=== PATIENT | female | born 1945 ===

== ENCOUNTER 2017-11-20 07:51 | Day surgery (SDC) | payer MEDICARE, BC ==
[~2017-11-20 07:51] MED LIST: Acetaminophen TAB* 325 MG PO PRN; Buffered Lidocaine 0.9% SYRIN* 5 ML/SYR SYRINGE INTRADERM ONE
[2017-11-20] MEDS ORDERED: Tropicamide 1% OPTH.SOL* BTL ONE (08:35)
[2017-11-20] MEDS ORDERED: Cyclopentolate 1% OPTH.SOL* 2 ML BTL ONE (08:35)
[2017-11-20] MEDS ORDERED: Phenylephrine 2.5% OPTH.SOL* 2 ML BTL ONE (08:35)
[2017-11-20] MEDS ORDERED: Tetracaine 0.5% OPTH.SOL 4 ML* 1 DROP BTL ONE (08:35)
[2017-11-20] MEDS ORDERED: Neomycin/Polymy/Dex OPHTH.OIN* 3.5 GM ONE (08:35)
[2017-11-20] MEDS ORDERED: Ketorolac 0.5% OPHTH (NF) 0.5 % 5 ML BTL ONE (08:35)
[2017-11-20] MEDS ORDERED: acetaZOLAMIDE TAB* 250 MG ONE (08:35)
[2017-11-20] MEDS ORDERED: Povidone Iodine 5% OPTH* 30 ML BTL ONE (08:35)
[2017-11-20] MEDS ORDERED: Lidocaine 1% MPF* 2 ML VIAL ONE (08:35)
[2017-11-20] MEDS ORDERED: Midazolam* 1 MG/ML 2 ML VIAL (2 MG) ONE (09:08)
[2017-11-20] MEDS ORDERED: Propofol* 10 MG/ML 20 ML BTL IV PUSH ONE (09:19)
[2017-11-20 09:51] VITALS: BP 130/65
--- NOTE | 2017-11-21 01:37 | OP ---
DATE OF OPERATION: 11/20/17 - [facility] DATE OF : 45 SURGEON: Bautista Valle MD ANESTHESIOLOGIST: Balaji Hall DO ANESTHESIA: Monitored anesthesia care. PRE-OP DIAGNOSIS: Cataract, right eye. POST-OP DIAGNOSIS: Cataract, right eye. OPERATIVE PROCEDURE: Extracapsular cataract extraction of the right eye with intraocular lens implant. IMPLANTS: SN60WF 17.0 diopter lens to the right eye. COMPLICATIONS: None. DESCRIPTION OF PROCEDURE: The patient was given phenylephrine 2.5% and cyclopentolate 1% eye drops to the operative eye in the preoperative area. The patient was brought to the operating room where a time-out was taken to identify the correct patient, site, and side of surgery. The patient's right eye was prepped and draped in the usual sterile fashion with 5% Betadine. A second time- out was taken to verify the correct patient, site and side of surgery and correct lens selection. A lid speculum was placed to the right eye. A 1-mm paracentesis blade was used to make a clear corneal incision in the superotemporal position. Preservative-free 1% lidocaine was injected into the anterior chamber. DisCoVisc was then injected into the anterior chamber. A 2.75 mm keratome blade was used to make a triplanar incision at the inferotemporal position. A cystotome initiated a capsulorrhexis which was completed with Utrata forceps in a continuous and curvilinear manner. Hydrodissection of the lens was performed with BSS on a cannula. The lens could be spun in the capsular bag. The phacoemulsification handpiece was used with a [id number] technique to remove the nucleus in its entirety with 13.24 CDE. The I/A handpiece then removed the residual cortical lens material. DisCoVisc was injected to inflate the capsular bag. The planned SN60WF 17.0 diopter lens was injected in the capsular bag. The residual DisCoVisc was removed from the eye with the I/A handpiece. The corneal incisions were hydrated and no leaks occurred at physiologic pressure around 20 mmHg per palpation. The lid speculum was removed and drapes removed. Maxitrol ointment was placed on the surface of the operative eye. An adhesive patch and shield was then placed on the operative eye. The patient was taken to the postoperative area in stable condition. [id number]/[facility] #: [id number] MTDD
== END 2017-11-20 09:59 | disposition home or self-care (01) ==
LOC: OREAST 07:51
PROVIDERS: ATTEND Student in an Organized Health Care Education/Training Program
DX: H25.11 Age-related nuclear cataract, right eye (principal); H43.813 Vitreous degeneration, bilateral; E78.2 Mixed hyperlipidemia; E53.8 Deficiency of other specified B group vitamins; Z87.891 Personal history of nicotine dependence; I69.320 Aphasia following cerebral infarction; G25.81 Restless legs syndrome; M85.879 Other specified disorders of bone density and structure, unspecified ankle and foot; G62.9 Polyneuropathy, unspecified
CPT/HCPCS: A9270-GY; J2250; J2704; V2632

== ENCOUNTER 2017-11-27 06:27 | Day surgery (SDC) | payer MEDICARE, BC ==
[2017-11-27] MEDS ORDERED: Midazolam* 1 MG/ML 2 ML VIAL (2 MG) ONE ×2 (07:44→07:49)
[2017-11-27] MEDS ORDERED: fentaNYL* 50 MCG/ML 2 ML VIAL (100 MCG VIAL) ONE (07:48)
[2017-11-27] MEDS ORDERED: Propofol* 10 MG/ML 20 ML BTL IV PUSH ONE (08:04)
[2017-11-27 08:19] VITALS: BP 108/80
[2017-11-27] MEDS ORDERED: Povidone Iodine 5% OPTH* 30 ML BTL ONE (11:40)
[2017-11-27] MEDS ORDERED: Neomycin/Polymy/Dex OPHTH.OIN* 3.5 GM ONE (11:40)
[2017-11-27] MEDS ORDERED: Lidocaine 1% MPF* 2 ML VIAL ONE (11:40)
[2017-11-27] MEDS ORDERED: Phenylephrine 2.5% OPTH.SOL* 2 ML BTL ONE (11:40)
[2017-11-27] MEDS ORDERED: Cyclopentolate 1% OPTH.SOL* 2 ML BTL ONE (11:40)
[2017-11-27] MEDS ORDERED: acetaZOLAMIDE TAB* 250 MG ONE (11:40)
[2017-11-27] MEDS ORDERED: Tetracaine 0.5% OPTH.SOL 4 ML* 1 DROP BTL ONE (11:41)
[2017-11-27] MEDS ORDERED: Ketorolac 0.5% OPHTH (NF) 0.5 % 5 ML BTL ONE (11:41)
[2017-11-27] MEDS ORDERED: Tropicamide 1% OPTH.SOL* BTL ONE (11:41)
--- NOTE | 2017-11-27 22:45 | OP ---
DATE OF OPERATION: 11/27/17 - [facility] DATE OF : 45 SURGEON: Bautista Valle MD ANESTHESIOLOGIST: Emilia Mercado MD ANESTHESIA: Monitored anesthesia care. PRE-OP DIAGNOSIS: Cataract, left eye. POST-OP DIAGNOSIS: Cataract, left eye. OPERATIVE PROCEDURE: Extracapsular cataract extraction of the left eye with intraocular lens implant. IMPLANTS: SN60WF 17.5 diopter lens, left eye. COMPLICATIONS: None. DESCRIPTION OF PROCEDURE: The patient was given phenylephrine 2.5% and cyclopentolate 1% eye drops to the operative eye in the preoperative area. The patient was brought to the operating room where a time-out was taken to identify the correct patient, site, and side of surgery. The patient's left eye was prepped and draped in the usual sterile fashion with 5% Betadine. A second time-out was taken to verify the correct patient, site, and side of surgery, and correct lens selection. A lid speculum was placed to left eye. A 1-mm paracentesis blade was used to make a clear corneal incision in the inferotemporal position. Preservative- free 1% lidocaine was injected into the anterior chamber. DisCoVisc was then injected into the anterior chamber. A 2.75-mm keratome blade was used to make a triplanar incision at the superotemporal position. A cystotome initiated a capsulorrhexis, which was completed with Utrata forceps in a continuous and curvilinear manner. Hydrodissection of the lens was performed with BSS on a cannula. The lens could be spun in the capsular bag. The phacoemulsification handpiece was used with a [id number] technique to remove the nucleus in its entirety with 16.97 CDE. The I/A handpiece then removed the residual cortical lens material. DisCoVisc was injected to inflate the capsular bag. The planned SN60WF 17.5 diopter lens was then injected into the capsular bag. The residual DisCoVisc was removed from the eye with the I/A handpiece. The corneal incisions were hydrated and no leaks occurred at physiologic pressure around 20 mmHg per palpation. The lid speculum was removed and drapes removed. Maxitrol ointment was placed on the surface of the operative eye. An adhesive patch and shield was then placed on the operative eye. The patient was taken to the postoperative area in stable condition. [id number]/[facility] #: [id number] JOELLEN
== END 2017-11-27 08:21 | disposition home or self-care (01) ==
LOC: OREAST 06:27
PROVIDERS: ATTEND Student in an Organized Health Care Education/Training Program
DX: H25.12 Age-related nuclear cataract, left eye (principal); H43.813 Vitreous degeneration, bilateral; E53.8 Deficiency of other specified B group vitamins; E78.2 Mixed hyperlipidemia; Z87.891 Personal history of nicotine dependence; M19.90 Unspecified osteoarthritis, unspecified site
CPT/HCPCS: A9270-GY; J2250; J2704; J3010; V2632